=== PATIENT | female | born 1950 | race Caucasian/White ===

== ENCOUNTER → 2021-11-04 | Outpatient (CLI) | payer MEDICARE, OTHER ==
[~2021-11-04] MED LIST: ALBU8.5H INH; ALLO10TA PO; AMLO1TAB25; BREO1INH3; BUME1TAB3 PO; CITA20TA6; D3 H10002 PO; GABA600T4 PO; HYDR-3910 PO; IPRAT-ALBUT; LABE100T4 PO; METF10004 PO; METO1TAB33; SILD20TA11 PO; SIMV20TA22 PO; SPIR-10 PO; TORS20TA2; VENL75CA47 PO; med rec comment
[2021-11-04 11:15] VITALS: BP 151/90
[2021-11-04 11:27] LABS: SOURCE, BODY FLUID ASCITES
[2021-11-04 11:28] LABS: APPEARANCE, BODY FLUID HAZY (CLEAR); ASCITES FL COLOR YELLOW (COLORLESS)
[2021-11-04 11:52] LABS: SOURCE, BODY FLUID ALBUMIN ASCITES; SOURCE, BODY FLUID TOT PROTEIN ASCITES; TOTAL PROTEIN, BODY FLUID 4.4 G/DL (NOT ESTABLISHED)
== END ==
LOC: M IRPRO 09:31
PROVIDERS: ATTEND Internal Medicine Cardiovascular Disease
DX: R18.8 Other ascites (principal)

== ENCOUNTER 2021-11-06 13:41 | Inpatient (IN) | payer MEDICARE, OTHER ==
[~2021-11-06] VITALS: Ht 157.5 cm; Wt 94.3 kg
[~2021-11-06 13:41] MED LIST changes: -ALBU8.5H INH; -ALLO10TA PO; -BUME1TAB3 PO; -D3 H10002 PO; -GABA600T4 PO; -LABE100T4 PO; -SILD20TA11 PO; -VENL75CA47 PO; -med rec comment
[2021-11-06 16:24] LABS: BASO % 0.6 % (0.0-1.0); EOS % 0.2 % (0.0-3.0); HEMATOCRIT 48.5 % (36.0-47.0); HEMOGLOBIN 15.4 g/dl (12.0-15.5); LYMPH # 1.1 10^3/uL (1.5-5.0); MEAN CORPUSCULAR HEMOGLOBIN 31.4 pg (27.0-33.0); MEAN CORPUSCULAR HGB CONC 31.8 g/dl (32.0-36.5); MEAN CORPUSCULAR VOLUME 98.8 fl (80.0-96.0); MONO # 0.7 10^3/uL (0.0-0.8); MONO % 11.8 % (2.0-8.0); NEUTROPHILS # 4.3 10^3/uL (1.5-8.5); NEUTROPHILS % 68.8 % (36.0-66.0); PLATELET COUNT, AUTOMATED 265 10^3/uL (150-450); RED BLOOD COUNT 4.91 10^6/uL (4.00-5.40); WHITE BLOOD COUNT 6.2 10^3/uL (4.0-10.0)
[2021-11-06 16:34] LABS: INR 1.09; PROTHROMBIN TIME 14.5 SECONDS (12.7-14.5)
[2021-11-06 16:35] LABS: PARTIAL THROMBOPLASTIN TIME 31.1 SECONDS (25.9-37.0)
[2021-11-06 16:51] LABS: ALBUMIN 3.2 GM/DL (3.2-5.2); BILIRUBIN,DIRECT 0.3 MG/DL (0.0-0.2); BILIRUBIN,TOTAL 0.8 MG/DL (0.2-1.0); CALCIUM LEVEL 9.5 MG/DL (8.8-10.2); CREATININE FOR GFR 1.32 MG/DL (0.55-1.30); POTASSIUM SERUM 4.8 MEQ/L (3.5-5.1); TOTAL PROTEIN 7.1 GM/DL (6.4-8.2)
[2021-11-06] MEDS ORDERED: ISOVUE-370 76% 100ML VIAL As Ordered ONE (16:56)
[2021-11-06] MEDS ORDERED: PIPERACILLIN/TAZOBACTAM SOD 3.375 GM in D5W MINI-BAG PLUS 50 ML IV ONE (18:50)
[2021-11-06 19:21] LABS: C REACTIVE PROTEIN QUANTITATIV 0.56 MG/DL (0.00-0.30)
[2021-11-06 19:27] LABS: ERYTHROCYTE SEDIMENTATION RATE 5 mm/hr (0-30)
[2021-11-06] MEDS ORDERED: DEXTROSE 50% 50 ML SYRINGE IV PRN (20:05)
[2021-11-06] MEDS ORDERED: MOM 30ML SUSPENSION UDC PO PRN (20:05)
[2021-11-06] MEDS ORDERED: GLUCOSE 4GM CHEW TABLET PO PRN (20:05)
[2021-11-06] MEDS ORDERED: GLUCAGON INJ 1MG VIAL SC PRN (20:05)
[2021-11-06] MEDS ORDERED: MAALOX 30 ML SUSP *UDC PO PRN (20:05)
[2021-11-06] MEDS ORDERED: ALLO10TA PO (20:49)
[2021-11-06] MEDS ORDERED: SILD20TA11 PO (20:49)
[2021-11-06] MEDS ORDERED: BUME1TAB3 PO (20:49)
[2021-11-06] MEDS ORDERED: VENL75CA47 PO (20:49)
[2021-11-06] MEDS ORDERED: GABA600T4 PO (20:49)
[2021-11-06] MEDS ORDERED: ALBU8.5H INH (20:49)
[2021-11-06] MEDS ORDERED: LABE100T6 PO (20:49)
[2021-11-06] MEDS ORDERED: D3 H10002 PO (20:50)
[2021-11-06] MEDS ORDERED: med rec comment (20:52)
[2021-11-06] MEDS ORDERED: HOME MED LIST COMPLETE! XX SCH (20:55)
[2021-11-06] MEDS: INSULIN LISPRO (NovoLOG) PER UNIT SC SCH (21:00)
[2021-11-06] MEDS ORDERED: BENZOIN TINCTURE 60ML BTL TOP ONE (21:00)
[2021-11-06] MEDS ORDERED: ALBUTEROL 90 MCG/ACT 8GM HFA INHALER INH PRN (21:10)
[2021-11-06 21:56] LABS: RSV AMPLIFICATION NEGATIVE (NEGATIVE)
[2021-11-06] MEDS: LABETALOL 100MG TAB PO SCH (23:32)
[2021-11-06] MEDS: GABAPENTIN 300 MG CAP PO SCH (23:33)
[2021-11-06] MEDS: **hydrALAZINE HCL** 25 MG TAB PO SCH (23:33)
[2021-11-06] MEDS: cefTRIAXone SOD 1 GM in D5W MINI-BAG PLUS 50 ML IV SCH (23:58)
[2021-11-07] VITALS: BP 184/102
[2021-11-07] MEDS ORDERED: rOPINIRole 0.25 MG TAB(REQUIP) PO ONE (03:00)
[2021-11-07] MEDS ORDERED: CAPSAICIN 0.025% CR 60 GM TOP PRN (03:45)
[2021-11-07 04:00] VITALS: BP 123/69
[2021-11-07 06:10] LABS: HEMATOCRIT 45.9 % (36.0-47.0); HEMOGLOBIN 15.2 g/dl (12.0-15.5); MEAN CORPUSCULAR HEMOGLOBIN 31.8 pg (27.0-33.0); MEAN CORPUSCULAR HGB CONC 33.1 g/dl (32.0-36.5); PLATELET COUNT, AUTOMATED 289 10^3/uL (150-450); RED BLOOD COUNT 4.78 10^6/uL (4.00-5.40); WHITE BLOOD COUNT 7.2 10^3/uL (4.0-10.0)
[2021-11-07 06:32] LABS: ALBUMIN 3.6 GM/DL (3.2-5.2); ALT/SGPT 19 U/L (12-78); BILIRUBIN,TOTAL 1.1 MG/DL (0.2-1.0); BLOOD UREA NITROGEN 27 MG/DL (7-18); CALCIUM LEVEL 9.3 MG/DL (8.8-10.2); CARBON DIOXIDE LEVEL 23 MEQ/L (21-32); CHLORIDE LEVEL 105 MEQ/L (98-107); CREATININE FOR GFR 1.25 MG/DL (0.55-1.30); GLOMERULAR FILTRATION RATE 44.7 (>39); GLUCOSE, FASTING 115 MG/DL (70-100); MAGNESIUM LEVEL 2.1 MG/DL (1.8-2.4); POTASSIUM SERUM 5.3 MEQ/L (3.5-5.1); SODIUM LEVEL 136 MEQ/L (136-145); TOTAL PROTEIN 7.4 GM/DL (6.4-8.2)
[2021-11-07] MEDS: INSULIN LISPRO (NovoLOG) PER UNIT SC SCH ×4 (07:30→21:00)
[2021-11-07 07:33] VITALS: BP 141/82
[2021-11-07] MEDS: BUMETANIDE 1MG/4ML VIAL IV SCH ×2 (08:48→21:44)
[2021-11-07] MEDS: **hydrALAZINE HCL** 25 MG TAB PO SCH ×2 (08:48→21:45)
[2021-11-07] MEDS: LABETALOL 100MG TAB PO SCH ×2 (08:48→21:44)
[2021-11-07] MEDS: GABAPENTIN 300 MG CAP PO SCH ×3 (08:48→21:45)
[2021-11-07] MEDS: VENLAFAXINE **XR** 75MG CAPSULE PO SCH (08:49)
[2021-11-07] MEDS: allopurinoL 300 MG TAB PO SCH (08:49)
[2021-11-07] MEDS: SIMVASTATIN 20 MG TAB PO SCH (08:49)
[2021-11-07] MEDS ORDERED: SPIRONOLACTONE 25 MG TAB PO SCH (09:00)
[2021-11-07] MEDS ORDERED: BUMETANIDE 1 MG TAB PO SCH (09:00)
[2021-11-07 10:54] LABS: HEPATITIS B CORE ANTIBODY IGM NEGATIVE (NEGATIVE); HEPATITIS B SURFACE ANTIGEN NEGATIVE (NEGATIVE); HEPATITIS C VIRUS ABY INDEX < 0.0 INDEX (<0.8)
[2021-11-07 11:32] LABS: PERCENT SATURATION 21.1 % (13.2-45.0)
[2021-11-07 11:47] LABS: HEPATITIS B SURFACE ANTIGEN NEGATIVE (NEGATIVE)
[2021-11-07 11:48] LABS: FOLATE 9.6 NG/ML (>5.4)
[2021-11-07 12:15] LABS: HEPATITIS C VIRUS ABY INDEX < 0.0 INDEX (<0.8)
[2021-11-07 12:16] LABS: HEPATITIS B CORE ANTIBODY IGM NEGATIVE (NEGATIVE)
[2021-11-07] MEDS: DOCUSATE SODIUM 100MG CAPSULE PO SCH ×2 (12:16→21:45)
[2021-11-07] MEDS: ACETAMINOPHEN TAB 650MG DOSE (2X325MG) PO PRN ×2 (12:17→21:58)
[2021-11-07 12:34] VITALS: BP 113/70
[2021-11-07 20:00] VITALS: BP 132/82
[2021-11-07] MEDS: cefTRIAXone SOD 1 GM in D5W MINI-BAG PLUS 50 ML IV SCH (21:45)
[2021-11-07] MEDS: SENNA 8.6 MG TAB (SENOKOT) PO SCH (21:45)
[2021-11-08 04:00] VITALS: BP 101/55
[2021-11-08 05:56] LABS: HEMATOCRIT 41.4 % (36.0-47.0); HEMOGLOBIN 13.6 g/dl (12.0-15.5); MEAN CORPUSCULAR HEMOGLOBIN 31.5 pg (27.0-33.0); MEAN CORPUSCULAR HGB CONC 32.9 g/dl (32.0-36.5); MEAN CORPUSCULAR VOLUME 95.8 fl (80.0-96.0); PLATELET COUNT, AUTOMATED 230 10^3/uL (150-450); RED BLOOD COUNT 4.32 10^6/uL (4.00-5.40); WHITE BLOOD COUNT 5.3 10^3/uL (4.0-10.0)
[2021-11-08 06:45] LABS: BILIRUBIN,TOTAL 0.8 MG/DL (0.2-1.0); CALCIUM LEVEL 9.2 MG/DL (8.8-10.2); CREATININE FOR GFR 1.51 MG/DL (0.55-1.30); MAGNESIUM LEVEL 2.1 MG/DL (1.8-2.4); POTASSIUM SERUM 4.5 MEQ/L (3.5-5.1); TOTAL PROTEIN 6.1 GM/DL (6.4-8.2)
[2021-11-08] MEDS: INSULIN LISPRO (NovoLOG) PER UNIT SC SCH ×4 (07:30→20:29)
[2021-11-08 07:36] VITALS: BP 138/73
[2021-11-08] MEDS: GABAPENTIN 300 MG CAP PO SCH (08:49)
[2021-11-08] MEDS: VENLAFAXINE **XR** 75MG CAPSULE PO SCH (08:49)
[2021-11-08] MEDS: BUMETANIDE 1MG/4ML VIAL IV SCH ×2 (08:49→20:32)
[2021-11-08] MEDS: LABETALOL 100MG TAB PO SCH ×2 (08:50→21:27)
[2021-11-08] MEDS: DOCUSATE SODIUM 100MG CAPSULE PO SCH ×2 (08:50→20:30)
[2021-11-08] MEDS: allopurinoL 300 MG TAB PO SCH (08:50)
[2021-11-08] MEDS: SIMVASTATIN 20 MG TAB PO SCH (08:51)
[2021-11-08] MEDS: **hydrALAZINE HCL** 25 MG TAB PO SCH ×2 (08:51→20:31)
[2021-11-08] MEDS ORDERED: SPIRONOLACTONE 50 MG TAB PO ONE (15:00)
[2021-11-08 16:01] VITALS: BP 132/69
[2021-11-08 16:20] VITALS: BP 128/76
[2021-11-08 20:25] VITALS: BP 122/73
[2021-11-08] MEDS: SENNA 8.6 MG TAB (SENOKOT) PO SCH (20:30)
[2021-11-08] MEDS ORDERED: GABAPENTIN 300 MG CAP PO ONE (21:45)
[2021-11-08] MEDS ORDERED: rOPINIRole 0.25 MG TAB(REQUIP) PO ONE (21:45)
[2021-11-09 05:26] VITALS: BP 101/53
[2021-11-09 06:31] LABS: HEMATOCRIT 41.3 % (36.0-47.0); HEMOGLOBIN 13.6 g/dl (12.0-15.5); MEAN CORPUSCULAR HEMOGLOBIN 31.8 pg (27.0-33.0); MEAN CORPUSCULAR HGB CONC 32.9 g/dl (32.0-36.5); MEAN CORPUSCULAR VOLUME 96.5 fl (80.0-96.0); PLATELET COUNT, AUTOMATED 233 10^3/uL (150-450); RED BLOOD COUNT 4.28 10^6/uL (4.00-5.40); WHITE BLOOD COUNT 5.5 10^3/uL (4.0-10.0)
[2021-11-09 07:17] LABS: ALBUMIN 3.2 GM/DL (3.2-5.2); BILIRUBIN,TOTAL 0.9 MG/DL (0.2-1.0); CALCIUM LEVEL 8.9 MG/DL (8.8-10.2); CREATININE FOR GFR 1.41 MG/DL (0.55-1.30); GLOMERULAR FILTRATION RATE 38.9 (>39); MAGNESIUM LEVEL 2.2 MG/DL (1.8-2.4); POTASSIUM SERUM 4.1 MEQ/L (3.5-5.1); TOTAL PROTEIN 6.6 GM/DL (6.4-8.2)
[2021-11-09] MEDS: DOCUSATE SODIUM 100MG CAPSULE PO SCH (08:04)
[2021-11-09] MEDS: BUMETANIDE 1MG/4ML VIAL IV SCH (08:04)
[2021-11-09] MEDS: allopurinoL 300 MG TAB PO SCH (08:05)
[2021-11-09] MEDS: SIMVASTATIN 20 MG TAB PO SCH (08:05)
[2021-11-09] MEDS: VENLAFAXINE **XR** 75MG CAPSULE PO SCH (08:05)
[2021-11-09] MEDS: INSULIN LISPRO (NovoLOG) PER UNIT SC SCH ×2 (08:06→12:36)
[2021-11-09 08:09] VITALS: BP 139/76
[2021-11-09] MEDS: **hydrALAZINE HCL** 25 MG TAB PO SCH (08:09)
[2021-11-09] MEDS: LABETALOL 100MG TAB PO SCH (08:09)
[2021-11-09] MEDS ORDERED: SPIRONOLACTONE 50 MG TAB PO SCH (09:00)
[2021-11-09 14:00] VITALS: BP 135/76
[2021-11-09] MEDS ORDERED: SPIR50TA4 PO (14:13)
[2021-11-09] MEDS ORDERED: BUME1TAB3 PO (14:13)
[2021-11-09] MEDS ORDERED: GABA-282 PO (14:13)
== END 2021-11-09 15:11 | disposition home or self-care (01) | DRG 442 ==
LOC: M ED 15:48 → M ED INP 20:05 → ENRESERV 22:14 → M PCU 23:02 → M MSPAV 11-08 16:12
PROVIDERS: ADMIT Internal Medicine; ATTEND Internal Medicine
DX: K76.0 Fatty (change of) liver, not elsewhere classified (principal); N17.9 Acute kidney failure, unspecified; I50.30 Unspecified diastolic (congestive) heart failure; R18.8 Other ascites; K59.00 Constipation, unspecified; E87.5 Hyperkalemia; E11.9 Type 2 diabetes mellitus without complications; F17.210 Nicotine dependence, cigarettes, uncomplicated; E78.5 Hyperlipidemia, unspecified; I27.20 Pulmonary hypertension, unspecified; M10.9 Gout, unspecified; I11.0 Hypertensive heart disease with heart failure; F32.A Depression, unspecified; Z79.899 Other long term (current) drug therapy; F41.9 Anxiety disorder, unspecified

== ENCOUNTER → 2024-03-26 | Outpatient (CLI) | payer MEDICARE, OTHER ==
[~2024-03-26] MED LIST changes: +ALBU8.5H INH; +ALLO10TA PO; +BUME1TAB3 PO; +D3 H10002 PO; +GABA-1172 PO; +GABA-1490 PO; -HYDR-3910 PO; +HYDR25TA87 PO; +LABE100T6 PO; +SILD20TA11 PO; +SPIR50TA4 PO; +VENL75CA47 PO; +med rec comment
== END ==
LOC: M RAD 09:40
PROVIDERS: ATTEND Physician Assistant
DX: I87.331 Chronic venous hypertension (idiopathic) with ulcer and inflammation of right lower extremity (principal)

== ENCOUNTER → 2024-07-05 | Outpatient (CLI) | payer MEDICARE, OTHER | LOC: M SLEEP 20:00 | PROVIDERS: ATTEND Internal Medicine Critical Care Medicine | DX: G47.33 Obstructive sleep apnea (adult) (pediatric) (principal) ==

== ENCOUNTER → 2024-10-17 | Outpatient (CLI) | payer MEDICARE, OTHER | LOC: M SLEEP 20:00 | PROVIDERS: ATTEND Internal Medicine Critical Care Medicine | DX: G47.33 Obstructive sleep apnea (adult) (pediatric) (principal) ==